=== PATIENT | female | born 1965 | race Caucasian/White ===

== ENCOUNTER 2019-09-29 06:21 | Day surgery (SDC) | payer BC ==
[2019-09-29] MEDS ORDERED: Propofol 200 MG/20 ML SDV IV ONE (06:22)
[2019-09-29] MEDS ORDERED: Midazolam 1 MG/ML 2 ML SDV IV ONE (06:22)
[2019-09-29] MEDS ORDERED: Lidocaine 1% PF 2 ML SDV INJECT ONE (06:22)
[2019-09-29] MEDS ORDERED: Sodium Chloride 0.9% 10 ML Syringe FLUSH PRN (06:45)
[2019-09-29] MEDS ORDERED: Lactated Ringers 1,000 ML IV SCH (06:45)
--- NOTE | 2019-09-29 08:14 | PCM.PN ---
- General Info Date of Service: 09/29/19 - Review of Systems Systems Review Comment:: 54 y/o female with history of colon polyps here for colonoscopy. Her last colonoscopy was 3 years ago. She is medically stable to proceed. Her recent H and P is reviewed and no significant changes are noted. I have discussed the proposed colonoscopy with the patient. She agrees to proceed accepting risks. - Patient Data Vitals - Most Recent: Last Vital Signs Temp 97.7 F 09/29/19 07:15 Pulse 73 09/29/19 07:15 Resp 18 09/29/19 07:15 BP 131/74 09/29/19 07:15 Pulse Ox 100 09/29/19 07:15 Weight - Most Recent: 191 lb 12.8 oz Med Orders - Current: Current Medications Lactated Ringer's (Ringers, Lactated) 1,000 mls @ 125 mls/hr IV ASDIRECTED JAKOB Last Admin: 09/29/19 07:33 Dose: 125 mls/hr Sodium Chloride (Saline Flush) 10 ml FLUSH ASDIRECTED PRN PRN Reason: Keep Vein Open Sepsis Event Note - Focused Exam Vital Signs: Vital Signs Temp Pulse Resp BP Pulse Ox 09/29/19 07:15 97.7 F 73 18 131/74 100 Date Exam was Performed: 09/29/19 Time Exam was Performed: 08:12 - Problem List Review Problem List Initiated/Reviewed/Updated: Yes - My Orders Last 24 Hours: My Active Orders 09/29/19 06:45 Patient Status [ADT] Routine Patient to Empty Bladder [RC] ASDIRECTED Verify Patient Consent Obtain [RC] ASDIRECTED Lactated Ringers [Ringers, Lactated] 1,000 ml IV ASDIRECTED Sodium Chloride 0.9% [Saline Flush] 10 ml FLUSH ASDIRECTED PRN Peripheral IV Insertion Adult [OM.PC] Routine 09/29/19 Breakfast Nothing Per Oral Diet [DIET] - Assessment Assessment:: History of colon polyps - Plan Plan:: Colonoscopy
--- NOTE | 2019-09-29 08:50 | PCM.OPNOTE ---
- General Post-Op/Procedure Note Date of Surgery/Procedure: 09/29/19 Operative Procedure(s): Colonoscopy with polypectomy Findings: Small cecal polyp Moderate sized external hemorrhoids Pre Op Diagnosis: History of colon polyps Post-Op Diagnosis: Colon Polyp. Hemorrhoids Anesthesia Technique: MAC Primary Surgeon: Isaac Regalado Pathology: Cecal Polyp EBL in mLs: 0 Complications: None Condition: Good
--- NOTE | 2019-09-29 16:50 | OR ---
DATE OF OPERATION: 09/29/2019 SURGEON: Isaac Regalado MD PREOPERATIVE DIAGNOSIS: History of colon polyps. POSTOPERATIVE DIAGNOSIS: Colon polyp and hemorrhoids. OPERATION PERFORMED: Colonoscopy with polypectomy. INDICATIONS FOR SURGERY: This 54-year-old female is here for surveillance colonoscopy. She has a personal history of colon polyps. FINDINGS: A single small polyp was noted in the cecum today. It is 4 mm in size, sessile in configuration. The patient also has a moderate-sized external hemorrhoids. The remainder of the colon appears normal. PROCEDURE IN DETAIL: The patient was taken to the operating room. She was given intravenous sedation, and with her in the left lateral decubitus position, a digital rectal exam was performed. No rectal masses were noted. The Olympus colonoscope was inserted into the rectum. Retroflexed examination of the rectal canal was performed. The scope was carefully advanced under direct visualization through the entire length of the colon until the cecum was reached. Cecal acquisition was confirmed by noting the normal internal cecal anatomy including the appendiceal orifice and ileocecal valve. While examining the cecum, the above-described small polyp was identified. This was removed completely with the cold biopsy forceps. The scope was then slowly withdrawn, sequentially re-examining the colonic segments until the entire colon and rectum had been fully examined. The scope was removed, and the patient was taken from the operating room in satisfactory condition. ESTIMATED BLOOD LOSS: 0. COMPLICATIONS: None. PROGNOSIS: Good. /[id number] OLIVA/MARK ANTHONY
== END 2019-09-29 10:15 | disposition home or self-care (01) ==
LOC: FB.SDS 06:21
PROVIDERS: ATTEND Surgery
DX: Z12.11 Encounter for screening for malignant neoplasm of colon (principal); D12.0 Benign neoplasm of cecum; K64.4 Residual hemorrhoidal skin tags; Z86.010 Personal history of colon polyps; Z88.8 Allergy status to other drugs, medicaments and biological substances; Z98.890 Other specified postprocedural states; Z87.19 Personal history of other diseases of the digestive system; Z79.899 Other long term (current) drug therapy
CPT/HCPCS: 45378; 88305; J2001; J2250; J2704; J7120